=== PATIENT | male | born 1960 | race Caucasian/White ===

== ENCOUNTER 2020-06-27 07:25 | Outpatient (CLI) | payer OTHER, SELFPAY ==
[2020-06-27 07:39] LABS: Add Urine Microscopic? YES; Appearance Urine Clear (Clear); Basophils Absolute Auto 0.02 K/mm3 (0.00-0.10); Basophils Percent Auto 0.5 % (0.0-1.0); Bilirubin Urine 2+ (Negative); Blood Urine Negative (Negative); Color Urine Yellow (Yellow); Eosinophils Absolute Auto 0.26 K/mm3 (0.02-0.50); Eosinophils Percent Auto 6.2 % (1.0-6.0); Glucose Urine UA Negative (Negative); Hematocrit 42.7 % (40.0-54.0); Hemoglobin 14.2 g/dL (14.0-18.0); Immature Granulocyte Absolute 0.01 K/mm3 (0.00-0.00); Immature Granulocyte Percent A 0.2 % (0.0-0.0); Ketones Urine Negative (Negative); Leukocyte Esterase Ur Negative (Negative); Lymphocytes Absolute Auto 1.52 K/mm3 (1.10-4.50); Mean Corpuscular HGB Conc 33.3 g/dL (32.0-36.0); Mean Corpuscular Hemoglobin 30.4 pg (27.0-31.0); Mean Corpuscular Volume 91.4 fL (78.0-102.0); Mean Platelet Volume 10.4 fl (8.7-11.0); Monocytes Percent Auto 9.5 % (2.0-11.0); Neutrophils Percent Auto 47.6 % (50.0-70.0); Nitrate Urine Negative (Negative); Platelet Count Result 227 K/mm3 (150-420); Protein Urine Negative (Negative); Red Blood Count 4.67 M/mm3 (4.70-6.10); Red Cell Distribution Width 12.5 % (11.6-14.4); Specific Grav Ur 1.025 (1.010-1.020); Urobilinogen Urine 0.2 mg/dL (0.2-1.0); White Blood Count 4.2 K/mm3 (4.8-10.8)
[2020-06-27 07:48] LABS: Hemoglobin A1C 5.5 % (<5.7)
[2020-06-27 07:52] LABS: Bacteria Urine None seen /hpf; RBC Urine None seen /hpf (0-2); Squamous Epithelial Cell Urine Rare /hpf (Few); WBC Urine None seen /hpf (0-3)
[2020-06-27 08:52] LABS: Alanine Aminotransferase 37 U/L (16-63); Albumin Level 3.8 g/dL (3.4-5.0); Alkaline Phosphatase 58 U/L (46-116); Anion Gap 9 mmol/L (8-16); Aspartate Amino Transferase 25 U/L (15-37); Bilirubin,Total 0.8 mg/dL (0.00-1.00); Blood Urea Nitrogen 25 mg/dL (7-18); Calcium 8.6 mg/dL (8.5-10.1); Carbon Dioxide 26 mmol/L (21-32); Chloride 106 mmol/L (98-108); Cholesterol 160 mg/dL (0-200); Estimated Glomerular Filt Rate > 60; Glucose 99 mg/dL (70-99); HDL Direct 33 mg/dL (40-60); LDL Cholesterol Calculated 107 mg/dL (<130); Osmolality Calculated 296 mOsm/kg (285-295); Potassium 4.1 mmol/L (3.5-5.1); Prostate Specific Antigen 1.5 ng/mL (< OR = 4.0); Sodium 141 mmol/L (136-145); Total Protein 7.1 g/dL (6.4-8.2); Triglycerides 98 mg/dL (0-150)
== END 2020-06-27 07:26 | disposition home or self-care (01) ==
LOC: CHSLAB 07:26
PROVIDERS: PCP Internal Medicine; Visit Provider Internal Medicine
DX: R73.01 Impaired fasting glucose (principal); I10 Essential (primary) hypertension; E78.2 Mixed hyperlipidemia; E53.9 Vitamin B deficiency, unspecified; Z12.5 Encounter for screening for malignant neoplasm of prostate
CPT/HCPCS: 36415; 80053; 80061; 81001; 83036; 84153; 85025; G0103

== ENCOUNTER 2021-01-22 07:38 | Outpatient (CLI) | payer OTHER, SELFPAY ==
[2021-01-22 07:52] LABS: Basophils Absolute Auto 0.04 K/mm3 (0.00-0.10); Eosinophils Absolute Auto 0.23 K/mm3 (0.02-0.50); Eosinophils Percent Auto 5.5 % (1.0-6.0); Hematocrit 41.8 % (40.0-54.0); Immature Granulocyte Absolute 0.01 K/mm3 (0.00-0.00); Immature Granulocyte Percent A 0.2 % (0.0-0.0); Lymphocytes Absolute Auto 1.55 K/mm3 (1.10-4.50); Lymphocytes Percent Auto 37.1 % (18.0-42.0); Mean Corpuscular HGB Conc 33.5 g/dL (32.0-36.0); Mean Corpuscular Hemoglobin 30.3 pg (27.0-31.0); Mean Corpuscular Volume 90.5 fL (78.0-102.0); Mean Platelet Volume 9.9 fl (8.7-11.0); Monocytes Absolute Auto 0.41 K/mm3 (0.10-0.90); Monocytes Percent Auto 9.8 % (2.0-11.0); Neutrophils Absolute Auto 1.9 K/mm3 (1.7-7.2); Neutrophils Percent Auto 46.4 % (50.0-70.0); Platelet Count Result 228 K/mm3 (150-420); Red Blood Count 4.62 M/mm3 (4.70-6.10); Red Cell Distribution Width 12.8 % (11.6-14.4); White Blood Count 4.2 K/mm3 (4.8-10.8)
[2021-01-22 07:55] LABS: Add Urine Microscopic? YES; Appearance Urine Clear (Clear); Bilirubin Urine 3+ (Negative); Blood Urine Negative (Negative); Color Urine Yellow (Yellow); Glucose Urine UA Negative (Negative); Ketones Urine Negative (Negative); Leukocyte Esterase Ur Negative (Negative); Nitrate Urine Negative (Negative); Protein Urine Negative (Negative); Specific Grav Ur >= 1.030 (1.010-1.020); Urobilinogen Urine 0.2 mg/dL (0.2-1.0); pH Urine 5.5 (5.0-8.0)
[2021-01-22 07:59] LABS: Bacteria Urine Trace /hpf; RBC Urine None seen /hpf (0-2); Squamous Epithelial Cell Urine Rare /hpf (Few); WBC Urine None seen /hpf (0-3)
[2021-01-22 08:01] LABS: Hemoglobin A1C 5.3 % (<5.7)
[2021-01-22 09:05] LABS: Alanine Aminotransferase 43 U/L (16-63); Albumin Level 3.8 g/dL (3.4-5.0); Alkaline Phosphatase 52 U/L (46-116); Anion Gap 8 mmol/L (8-16); Aspartate Amino Transferase 23 U/L (15-37); Blood Urea Nitrogen 27 mg/dL (7-18); Calcium 8.9 mg/dL (8.5-10.1); Carbon Dioxide 29 mmol/L (21-32); Chloride 105 mmol/L (98-108); Cholesterol 142 mg/dL (0-200); Creatine Kinase 322 U/L (39-308); Estimated Glomerular Filt Rate > 60; Glucose 95 mg/dL (70-99); HDL Direct 34 mg/dL (40-60); LDL Cholesterol Calculated 88 mg/dL (<130); Osmolality Calculated 299 mOsm/kg (285-295); Potassium 3.8 mmol/L (3.5-5.1); Sodium 142 mmol/L (136-145); Total Protein 6.9 g/dL (6.4-8.2); Triglycerides 98 mg/dL (0-150); Vitamin B12 1878 pg/mL (193-986)
[2021-01-26 22:43] LABS: Aldolase 6.5 U/L (<=8.1)
== END 2021-01-22 07:39 | disposition home or self-care (01) ==
LOC: CHSLAB 07:41
PROVIDERS: PCP Internal Medicine; Visit Provider Internal Medicine
DX: E78.2 Mixed hyperlipidemia (principal); I10 Essential (primary) hypertension; R73.01 Impaired fasting glucose; E53.9 Vitamin B deficiency, unspecified; M79.10 Myalgia, unspecified site
CPT/HCPCS: 36415; 80053; 80061; 81001; 82085; 82550; 82607; 83036; 85025

== ENCOUNTER 2021-07-03 07:28 | Outpatient (CLI) | payer OTHER, SELFPAY ==
[2021-07-03 07:50] LABS: Add Urine Microscopic? YES; Appearance Urine Clear (Clear); Bilirubin Urine 2+ (Negative); Blood Urine Negative (Negative); Color Urine Light Yellow (Yellow); Glucose Urine UA Negative (Negative); Hematocrit 43.7 % (40.0-54.0); Hemoglobin 14.8 g/dL (14.0-18.0); Ketones Urine Negative (Negative); Leukocyte Esterase Ur Negative (Negative); Mean Corpuscular HGB Conc 33.9 g/dL (32.0-36.0); Mean Corpuscular Hemoglobin 30.6 pg (27.0-31.0); Mean Corpuscular Volume 90.3 fL (78.0-102.0); Mean Platelet Volume 10.5 fl (8.7-11.0); Nitrate Urine Negative (Negative); Platelet Count Result 213 K/mm3 (150-420); Protein Urine Negative (Negative); Red Blood Count 4.84 M/mm3 (4.70-6.10); Red Cell Distribution Width 12.8 % (11.6-14.4); Urobilinogen Urine 0.2 mg/dL (0.2-1.0); White Blood Count 3.6 K/mm3 (4.8-10.8)
[2021-07-03 07:57] LABS: Bacteria Urine None seen /hpf; RBC Urine None seen /hpf (0-2); WBC Urine None seen /hpf (0-3)
[2021-07-03 08:07] LABS: Hemoglobin A1C 5.3 % (<5.7)
[2021-07-03 08:41] LABS: Band Neutrophils Percent 0 % (0-6); Eosinophils Absolute Manual 0.03 K/mm3 (0.02-0.5); Eosinophils Percent Manual 1 % (1-6); Lymphocytes Absolute Manual 1.26 K/mm3 (1.1-4.5); Lymphocytes Percent Manual 35 % (18-44); Monocytes Absolute Manual 0.36 K/mm3 (0.1-0.90); Monocytes Percent Manual 10 % (3-9); Neutrophils Absolute Manual 1.94 K/mm3 (1.3-6.7); Neutrophils Percent Manual 54 % (46-73); Platelet Estimate Adequate (Adequate); Total Cells Counted 100
[2021-07-03 09:26] LABS: Alanine Aminotransferase 41 U/L (16-63); Alkaline Phosphatase 60 U/L (46-116); Anion Gap 8 mmol/L (8-16); Aspartate Amino Transferase 23 U/L (15-37); Blood Urea Nitrogen 26 mg/dL (7-18); Carbon Dioxide 29 mmol/L (21-32); Chloride 105 mmol/L (98-108); Cholesterol 153 mg/dL (0-200); Creatine Kinase 210 U/L (39-308); Estimated Glomerular Filt Rate > 60; Free T4 Free Thyroxine 0.73 ng/dL (0.76-1.46); Glucose 97 mg/dL (70-99); HDL Direct 37 mg/dL (40-60); LDL Cholesterol Calculated 98 mg/dL (<130); Osmolality Calculated 298 mOsm/kg (285-295); Potassium 4.3 mmol/L (3.5-5.1); Prostate Specific Antigen 1.5 ng/mL (< OR = 4.0); Sodium 142 mmol/L (136-145); Total Protein 7.2 g/dL (6.4-8.2); Triglycerides 90 mg/dL (0-150); Vitamin B12 1242 pg/mL (193-986)
== END 2021-07-03 07:29 | disposition home or self-care (01) ==
LOC: CHSLAB 07:30
PROVIDERS: PCP Internal Medicine; Visit Provider Internal Medicine
DX: E53.9 Vitamin B deficiency, unspecified (principal); D70.9 Neutropenia, unspecified; R73.01 Impaired fasting glucose; I10 Essential (primary) hypertension; M79.10 Myalgia, unspecified site; Z12.5 Encounter for screening for malignant neoplasm of prostate
CPT/HCPCS: 36415; 80053; 80061; 81001; 82550; 82607; 83036; 84153; 84439; 84443; 85025; 85060; G0103

== ENCOUNTER 2022-01-08 07:26 | Outpatient (CLI) | payer BC, SELFPAY ==
[2022-01-08 07:47] LABS: Basophils Absolute Auto 0.03 K/mm3 (0.00-0.10); Basophils Percent Auto 0.7 % (0.0-1.0); Eosinophils Absolute Auto 0.29 K/mm3 (0.02-0.50); Hematocrit 45.5 % (40.0-54.0); Hemoglobin 15.3 g/dL (14.0-18.0); Immature Granulocyte Absolute 0.01 K/mm3 (0.00-0.00); Immature Granulocyte Percent A 0.2 % (0.0-0.0); Lymphocytes Absolute Auto 1.42 K/mm3 (1.10-4.50); Lymphocytes Percent Auto 34.5 % (18.0-42.0); Mean Corpuscular HGB Conc 33.6 g/dL (32.0-36.0); Mean Corpuscular Hemoglobin 31.2 pg (27.0-31.0); Mean Corpuscular Volume 92.9 fL (78.0-102.0); Mean Platelet Volume 10.5 fl (8.7-11.0); Monocytes Absolute Auto 0.36 K/mm3 (0.10-0.90); Monocytes Percent Auto 8.7 % (2.0-11.0); Neutrophils Percent Auto 48.9 % (50.0-70.0); Platelet Count Result 230 K/mm3 (150-420); Red Cell Distribution Width 12.6 % (11.6-14.4); White Blood Count 4.1 K/mm3 (4.8-10.8)
[2022-01-08 07:49] LABS: Add Urine Microscopic? YES; Appearance Urine Clear (Clear); Bilirubin Urine 2+ (Negative); Blood Urine Negative (Negative); Color Urine Yellow (Yellow); Glucose Urine UA Negative (Negative); Ketones Urine Negative (Negative); Leukocyte Esterase Ur Negative (Negative); Nitrate Urine Negative (Negative); Protein Urine Negative (Negative); Specific Grav Ur >= 1.030 (1.010-1.020); Urobilinogen Urine 0.2 mg/dL (0.2-1.0)
[2022-01-08 07:53] LABS: RBC Urine None seen /hpf (0-2); Squamous Epithelial Cell Urine Rare /hpf (Few); WBC Urine None seen /hpf (0-3)
[2022-01-08 07:54] LABS: Bacteria Urine Trace /hpf; Mucus Urine Few /lpf
[2022-01-08 08:54] LABS: Alanine Aminotransferase 36 U/L (16-63); Albumin Level 3.9 g/dL (3.4-5.0); Alkaline Phosphatase 61 U/L (46-116); Anion Gap 8 mmol/L (8-16); Aspartate Amino Transferase 21 U/L (15-37); Bilirubin,Total 0.7 mg/dL (0.00-1.00); Blood Urea Nitrogen 22 mg/dL (7-18); Calcium 8.7 mg/dL (8.5-10.1); Carbon Dioxide 29 mmol/L (21-32); Chloride 104 mmol/L (98-108); Cholesterol 159 mg/dL (0-200); Estimated Glomerular Filt Rate > 60; Free T4 Free Thyroxine 0.75 ng/dL (0.76-1.46); Glucose 100 mg/dL (70-99); HDL Direct 33 mg/dL (40-60); LDL Cholesterol Calculated 108 mg/dL (<130); Osmolality Calculated 295 mOsm/kg (285-295); Potassium 4.3 mmol/L (3.5-5.1); Sodium 141 mmol/L (136-145); Thyroid Stimulating Hormone 2.25 uIU/mL (0.36-3.74); Total Protein 7.1 g/dL (6.4-8.2); Triglycerides 91 mg/dL (0-150); Vitamin B12 657 pg/mL (193-986)
[2022-01-08 08:56] LABS: Erythrocyte Sedimentation Rate 2 mm/hr (0-20)
[2022-01-08 08:57] LABS: CRP < 0.5 mg/dL (0.0-0.9)
== END 2022-01-08 07:27 | disposition home or self-care (01) ==
LOC: CHSLAB 07:30
PROVIDERS: PCP Internal Medicine; Visit Provider Internal Medicine
DX: D70.9 Neutropenia, unspecified (principal); I10 Essential (primary) hypertension; E55.9 Vitamin D deficiency, unspecified; R73.01 Impaired fasting glucose; E03.4 Atrophy of thyroid (acquired); M45.0 Ankylosing spondylitis of multiple sites in spine
CPT/HCPCS: 36415; 80053; 80061; 81001; 82607; 83036; 84439; 84443; 85025; 85652; 86140

== ENCOUNTER 2022-01-25 17:03 | Outpatient (CLI) | payer BC, SELFPAY ==
--- NOTE | ~2022-01-25 | XR_ITS ---
XR_CERV2-3V_CR DATE: 01/25/2022 17:38 INDICATION: Neck pain TECHNIQUE: AP, open-mouth, lateral views COMPARISON: December 14, 2013 CT cervical spine FINDINGS: C1 and C2 are normally aligned and the odontoid process is intact. There is mild levoscoliosis of the cervical and upper thoracic spine. No fracture or dislocation, locked facet or prevertebral soft tissue swelling. There is severe degenerative disc disease at C5-6 and C6-7, as well as uncovertebral joint spurring. IMPRESSION: Severe degenerative disc disease and uncovertebral joint spurring at C5-6 and C6-7 Reviewed, dictated and finalized at [facility]. Reviewed, dictated and finalized at location A. IMPRESSION: Severe degenerative disc disease and uncovertebral joint spurring a t C5-6 and C6-7
--- NOTE | ~2022-01-25 | XR_ITS ---
XR thoracic spine 3V DATE: 01/25/2022 17:38 INDICATION: Chronic upper back pain with limited movement TECHNIQUE: AP, lateral, swimmer views COMPARISON: None FINDINGS: Severe degenerative disc disease at C5-6 and C6-7. There is minimal dextro scoliosis of the thoracic spine. There is thoracic spine degenerative spurring, greater in the lower thoracic spine. No fracture or dislocation or bone destruction is evident. The thoracic pedicles are intact. No yeni solange soft tissue thickening. IMPRESSION: Minimal dextro scoliosis Degenerative spurring Reviewed, dictated and finalized at location A.
--- NOTE | ~2022-01-25 | XR_ITS ---
XR lumbar spine 2-3V DATE: 01/25/2022 17:38 INDICATION: Chronic low back pain, worse on the right. No known injury. TECHNIQUE: AP, lateral, coned lateral lumbosacral views COMPARISON: None FINDINGS: Normal alignment of the lumbar spine. No fracture or bone destruction. The lumbar pedicles are intact. Moderate to moderately severe degenerative disc disease of the lumbar and lumbosacral spine except fo r mild degenerative disease at L4-5. The sacroiliac joints are intact. IMPRESSION: Multilevel degenerative disc disease Reviewed, dictated and finalized at location A.
--- NOTE | ~2022-01-25 | XR_ITS ---
XR hip BI wo pelvis DATE: 01/25/2022 17:38 INDICATION: Chronic bilateral hip pain, worsening on the right. No known injury. TECHNIQUE: AP and lateral views of each hip COMPARISON: None FINDINGS: There is bilateral hip osteoarthritic arthritis, moderately severe on the right, moderately prominent on the left. No fracture, dislocation, avascular necrosis or bone destruction is detected. Normal alignment at the pubic symphysis and sacroiliac joints. Status post right inguinal herniorrhaphy. IMPRESSION: Bilateral hip osteoarthritis, moderately severe on the right, moderate on the left Status post right inguinal herniorrhaphy Reviewed, dictated and finalized at location A. IMPRESSION: Bilateral hip osteoarthritis, moderately severe on the right, moder ate on the left Status post right inguinal herniorrhaphy
== END 2022-01-25 17:04 | disposition home or self-care (01) ==
LOC: CHSIMG 17:05
PROVIDERS: PCP Internal Medicine; Visit Provider Internal Medicine
DX: M25.551 Pain in right hip (principal); M54.50 Low back pain, unspecified; M45.9 Ankylosing spondylitis of unspecified sites in spine
CPT/HCPCS: 72040; 72072; 72100; 73521

== ENCOUNTER 2022-02-08 16:48 | Outpatient (RCR) | payer BC, SELFPAY ==
--- NOTE | 2022-02-08 17:50 | PTOPEVAL ---
Thank you for referring Oracio Bloom to [facility].? The patient is scheduled to be seen for therapy? ____x/week for ___ weeks. Please review, sign, date and return this plan of care JERROD. I agree with and certify that the following plan of care is medically necessary. Referring Physician Date Admitting Provider: Attending Provider: Aditi Ellison MD Referring Provider: *PT Outpatient Evaluation Start: 02/08/22 17:06 Freq: Status: Active Protocol: Document 02/08/22 17:15 [facility] (Rec: 02/08/22 17:50 [facility] [email or web address]) Therapy Assessment Status Assessment Status Assessment Status Evaluation Evaluation Information Problem Diagnosis R hip pain, bilateral hip pain , DJD back and hips Onset 11/30/21 Additional Evaluation Detail LEFS = 52% functionally declined Subjective Information patient reports he has Query Text:As Reported By Patient/ stiffnes sin the mornings. he Family reports he has difficulty puting his R sock on. he reports he has limited mobility in the R hip. he reports the more he is up walking and standing both hips will burn. he reports since seeing a chiropractor his hip pain has been worse in the R hip. he reports he has more pain with rolling the R hip out to the side. Prior Level of Function Comments Additional Prior Level of Function patient reports he has been Comments more flared up for the past 3 months or so. prior to that, no lasting issues. he reports he would have come and go pain in the R hip and lower back. Pain Assessment Timing of Pain Assessment Timing of Pain Assessment Assessment Pain Scale Pain Scale Used Numeric (1 - 10) Self Report Pain Assessment Right Hip(s) Reported Pain Level 0 Greatest Pain Intensity 9 Pain Score Pain Score 0: Self Report Interventions Used Interventions Used By Clinicians Exercise,Rest Pain Relief Interventions Used By Medication Patient Cervical and Lumbar ROM Lumbar ROM Lumbar Flexion Active Floor Query Text:Hands to: Lumbar Extension (0-40) 20 Query Text:Active in Degrees Lumbar Lateral Flexion Right (0-40) 30 Query Text:Active in Degrees Lumbar Lateral Flexion Left (0-40)
--- NOTE | 2022-03-11 12:54 | PTOPEVAL ---
Thank you for referring Oracio Bloom to [facility].? The patient is scheduled to be seen for therapy? ____x/week for ___ weeks. Please review, sign, date and return this plan of care JERROD. I agree with and certify that the following plan of care is medically necessary. Referring Physician Date Admitting Provider: Attending Provider: Aditi Ellison MD Referring Provider: *PT Outpatient Evaluation Start: 02/08/22 17:06 Freq: Status: Active Protocol: Document 03/09/22 17:00 [facility] (Rec: 03/11/22 12:54 [facility] [id number]) Therapy Assessment Status Assessment Status Assessment Status Discharge Evaluation Information Problem Diagnosis R hip pain, bilateral hip pain , DJD back and hips Onset 11/30/21 Subjective Information patient reports he feels much Query Text:As Reported By Patient/ better overall. he reports Family he has pain still in the R hip . however, he reports improved mobility and activity tolerance since beginning therapy. he reports he is compliant with his HEP at home . Pain Assessment Timing of Pain Assessment Timing of Pain Assessment Pre-Treatment Pain Scale Pain Scale Used Numeric (1 - 10) Self Report Pain Assessment Right Hip(s) Reported Pain Level 2 Greatest Pain Intensity 4 Pain Score Pain Score 2: Self Report Interventions Used Interventions Used By Clinicians Activity or ADL's,Education, Electrical Stimulation, Exercise,Heat,Rest Lower Extremity Range of Motion General Lower Extremity Range of Motion Gross Lower Extremity Range of Motion 35 degrees R hip ER Comments 20 degrees R hip IR 110 degrees R hip flex Lower Extremity Muscle Strength Testing General Lower Extremity Strength Gross Lower Extremity Strength R hip flex 3+/5 R hip abd 3+/5 R knee ext 5/5 R knee flex 5/5 Muscle Length Testing Muscle Length Testing Left Hamstring Length 20 Query Text:(90 - 90 Position) Right Hamstring Length 20 Query Text:(90 - 90 Position) Gait Assessment Gait Pattern Assessment Other Gait Observations mild trendelemburg lean to the R with R stance phase of gait . General Exercise General Exercises Exercise Description Ther ex Query Text:Record Sets, Reps, -arom R hip mobility ER and Resistance, and Position flex wit
== END 2022-03-09 13:42 | disposition home or self-care (01) ==
LOC: CHSPT 16:48
PROVIDERS: PCP Internal Medicine; Visit Provider Internal Medicine
DX: M25.552 Pain in left hip (principal); M25.551 Pain in right hip; M47.9 Spondylosis, unspecified
CPT/HCPCS: 97014; 97110; 97161; G0283

== ENCOUNTER 2022-03-10 16:58 | Outpatient (CLI) | payer BC, SELFPAY ==
[2022-03-10 17:13] LABS: Basophils Absolute Auto 0.03 K/mm3 (0.00-0.10); Basophils Percent Auto 0.6 % (0.0-1.0); Eosinophils Absolute Auto 0.24 K/mm3 (0.02-0.50); Eosinophils Percent Auto 4.6 % (1.0-6.0); Hematocrit 43.2 % (40.0-54.0); Hemoglobin 14.6 g/dL (14.0-18.0); Immature Granulocyte Absolute 0.02 K/mm3 (0.00-0.00); Immature Granulocyte Percent A 0.4 % (0.0-0.0); Lymphocytes Absolute Auto 1.74 K/mm3 (1.10-4.50); Lymphocytes Percent Auto 33.5 % (18.0-42.0); Mean Corpuscular HGB Conc 33.8 g/dL (32.0-36.0); Mean Corpuscular Volume 91.7 fL (78.0-102.0); Mean Platelet Volume 10.2 fl (8.7-11.0); Monocytes Percent Auto 9.6 % (2.0-11.0); Neutrophils Absolute Auto 2.7 K/mm3 (1.7-7.2); Neutrophils Percent Auto 51.3 % (50.0-70.0); Platelet Count Result 266 K/mm3 (150-420); Red Blood Count 4.71 M/mm3 (4.70-6.10); Red Cell Distribution Width 12.3 % (11.6-14.4); White Blood Count 5.2 K/mm3 (4.8-10.8)
[2022-03-10 17:25] LABS: Alanine Aminotransferase 27 U/L (16-63); Aspartate Amino Transferase 23 U/L (15-37)
== END 2022-03-10 16:59 | disposition home or self-care (01) ==
LOC: CHSLAB 17:02
PROVIDERS: PCP Internal Medicine; Visit Provider Internal Medicine
DX: B35.1 Tinea unguium (principal)
CPT/HCPCS: 36415; 84450; 84460; 85025

== ENCOUNTER 2022-05-11 07:45 | Outpatient (CLI) | payer BC, SELFPAY ==
--- NOTE | ~2022-05-11 | XR_ITS ---
EXAMINATION: XR lg joint inject/asp w image DATE: 05/11/2022 08:20 INDICATION: Right hip pain. TECHNIQUE: A time-out was performed to verify the patient's name, date of , and procedure to b e performed. The procedure including the risks, benefits, and alternatives was discussed with the pat ient. Risks discussed included bleeding and infection. The patient understood the risks and agreed to proceed. The skin overlying the right hip joint was prepped and draped in usual sterile fashion. A nesthetic was administered with 1% lidocaine subcutaneously. A 22 G needle was advanced under fluoro scopic guidance into the joint. Subsequently, injectate consisting of 5 mL 1% lidocaine, 1 mL 40 mg/ mL Kenalog, and 1 mL 4 mg/mL dexamethasone was instilled. The needle was removed and the entry site was cleaned and dressed. There were no immediate complications. Fluoroscopy exposure time was 0.0 mi nutes. The total number of images was 1. FINDINGS: Real-time fluoroscopy demonstrates the needle in the right hip joint. Patient's pain prior to procedure:4/10. Patient's pain following the procedure: 4/10. IMPRESSION: 1. Fluoroscopy guided right hip joint injection of local anesthetic and steroid. Reviewed, dictated and finalized at location A. IMPRESSION: 1. Fluoroscopy guided right hip joint injection of local anesthetic and steroid .
== END 2022-05-11 07:46 | disposition home or self-care (01) ==
LOC: ANHIMG 07:50
PROVIDERS: PCP Internal Medicine; Visit Provider Internal Medicine
DX: M54.50 Low back pain, unspecified (principal); M25.552 Pain in left hip
CPT/HCPCS: 20610; 77002; J1100; J3301

== ENCOUNTER 2022-12-19 10:57 | Outpatient (CLI) | payer BC, SELFPAY ==
--- NOTE | ~2022-12-19 | XR_ITS ---
Left ankle Technique: AP, oblique, and lateral views were obtained. Clinical History: Pain Findings: No acute fracture or dislocation is seen. Chronic fracture fragment versus persistent secon jaycob ossification center noted at the tip of the lateral malleolus. Osseous alignment is anatomic. An kle mortise and other visualized joint spaces are preserved. Soft tissues are otherwise unremarkable . Impression: No acute abnormality. Reviewed, dictated and finalized at location . TRUCTION OR LEAK GANG LABORER Impression: No acute abnormality.
--- NOTE | ~2022-12-19 | XR_ITS ---
Left foot Technique: AP, oblique, and lateral views were obtained. Clinical History: Pain Findings: No acute fracture or dislocation is seen. Osseous alignment is anatomic. Joint spaces are p reserved without erosive or degenerative change. Soft tissues are unremarkable. Impression: Unremarkable left foot radiographs. Reviewed, dictated and finalized at location . TENTER OPERATOR Impression: Unremarkable left foot radiographs.
== END 2022-12-19 10:58 | disposition home or self-care (01) ==
LOC: CHSIMG 11:01
PROVIDERS: PCP Internal Medicine; Visit Provider Internal Medicine
DX: S99.922A Unspecified injury of left foot, initial encounter (principal)
CPT/HCPCS: 73610; 73630

== ENCOUNTER 2023-01-31 11:15 | Outpatient (CLI) | payer BC, SELFPAY ==
--- NOTE | 2023-01-31 15:11 | ECG_ITS ---
Measurements Intervals [place] Rate: 62 P: -7 VT: 189 QRS: -3 QRSD: 103 T: 18 QT: 376 QTc: 384 Interpretive Statements SINUS RHYTHM LEFT VENTRICULAR HYPERTROPHY AND ST-T CHANGE [VOLTAGE CRITERIA PLUS ST/T ABNORMALITY] ABNORMAL ECG NO PREVIOUS ECG AVAILABLE FOR COMPARISON Electronically Signed On 02-01-2023 13:40:06 CDT by Mateus Daniel M.D.
[2023-01-31 15:58] LABS: Basophils Percent Auto 0.7 % (0.2-1.2); Eosinophils Absolute Auto 0.1 K/mm3 (0-0.3); Eosinophils Percent Auto 2.9 % (0-4.4); Hematocrit 43.6 % (42.0-52.0); Hemoglobin 14.8 g/dL (14.0-18.0); Immature Granulocyte Absolute 0.01 K/mm3 (0.00-0.031); Immature Granulocyte Percent A 0.2 % (0-0.5); Lymphocytes Absolute Auto 1.42 K/mm3 (0.9-3.2); Lymphocytes Percent Auto 31.6 % (18.3-44.2); Mean Corpuscular HGB Conc 33.9 g/dl (32-36); Mean Corpuscular Hemoglobin 30.6 pg (26-34); Mean Corpuscular Volume 90.3 fl (80-100); Mean Platelet Volume 10.5 fl (7.4-10.4); Monocytes Absolute Auto 0.4 K/mm3 (0.1-0.6); Monocytes Percent Auto 8.5 % (2.6-8.5); Neutrophils Absolute Auto 2.5 K/mm3 (1.3-6.7); Neutrophils Percent Auto 56.1 % (45.5-73.1); Platelet Count Result 231 k/mm3 (150-375); Red Blood Count 4.83 M/mm3 (4.6-6.20); Red Cell Distribution Width 12.9 % (11.5-14.5); White Blood Count 4.5 K/mm3 (4.5-10.0)
[2023-01-31 16:22] LABS: Albumin Level 4.8 g/dL (3.5-5.1)
[2023-01-31 16:47] LABS: Urine Cotinine NEGATIVE
[2023-01-31 18:07] LABS: Hemoglobin A1C 5.1 % (<5.7)
== END 2023-01-31 11:16 | disposition home or self-care (01) ==
PROVIDERS: PCP Internal Medicine; Visit Provider Orthopaedic Surgery
DX: Z01.818 Encounter for other preprocedural examination (principal); M16.11 Unilateral primary osteoarthritis, right hip; R94.31 Abnormal electrocardiogram [ECG] [EKG]
CPT/HCPCS: 80307; 82040; 83036; 85025; 86850; 86900; 86901; 87081; 87147; 87181; 87186; 93005

== ENCOUNTER 2023-01-31 13:50 | Outpatient (CLI) | payer BC, SELFPAY ==
[2023-01-31 16:20] LABS: Cholesterol 196 mg/dL (0-200); HDL Direct 30 mg/dL; Triglycerides 137 mg/dL (<150)
[2023-01-31 16:23] LABS: Alanine Aminotransferase 32 U/L (6-50); Albumin Level 4.7 g/dL (3.5-5.1); Alkaline Phosphatase 62 U/L (38-126); Anion Gap 9 mmol/L (8-16); Aspartate Amino Transferase 25 U/L (17-59); Bilirubin,Total 1.3 mg/dL (0.2-1.3); Blood Urea Nitrogen 18 mg/dL (9-20); Calcium 9.5 mg/dL (8.4-10.2); Carbon Dioxide 27 mmol/L (22-30); Chloride 103 mmol/L (98-107); Estimated Glomerular Filt Rate > 60; Glucose 90 mg/dL (65-110); Potassium 4.2 mmol/L (3.4-5.0); Sodium 139 mmol/L (137-145)
[2023-01-31 16:28] LABS: CRP < 0.5 mg/dL (<1.0)
[2023-01-31 16:32] LABS: LDL Cholesterol Direct 129 mg/dL
[2023-01-31 16:53] LABS: Erythrocyte Sedimentation Rate 5 mm/hr (0-20)
== END 2023-01-31 13:51 | disposition home or self-care (01) ==
LOC: ANHLAB 13:55
PROVIDERS: PCP Internal Medicine; Visit Provider Internal Medicine
DX: R73.01 Impaired fasting glucose (principal); M45.0 Ankylosing spondylitis of multiple sites in spine; E78.2 Mixed hyperlipidemia; E53.9 Vitamin B deficiency, unspecified; D70.9 Neutropenia, unspecified
CPT/HCPCS: 36415; 80053; 80061; 82607; 85652; 86140

== ENCOUNTER 2023-02-08 01:26 | Day surgery (SDC) | payer BC, SELFPAY ==
[2023-01-31 14:09] VITALS: BP 121/76; PULSE 67; RESP 16; TEMP 37.1; O2SAT 97
[2023-01-31 14:10] VITALS: BMI 38.5
--- NOTE | 2023-01-31 14:35 | PC.NURSE ---
Report to the Outpatient Waiting Room, entrance under the green pavilion located off [facility], at time __10:00AM on date ___02/08/23____. Planned Procedure Time: __12:00PM . Time changes happen often and if your time is changed the preop area will call you the afternoon before. - You and your visitor will be asked to self-screen and do not enter if you have any COVID symptoms. - Only one visitor is requested with a max of two and NO children visitors are allowed at this time. - The patient visitor may be requested to leave or wait in car when not with patient due to distancing restrictions. - A mask is optional within the hospital at this time. Patients may have clear liquids (water, carbonated beverages, clear teas, apple juice) until 3 hours prior to surgery with a maximum of 20 ounces. - No food from midnight until time of surgery Take the following medications with a SIP of water the morning of surgery: __HYDROCODONE NEEDED DO NOT STOP ANY OF YOUR OTHER PRESCRIPTION MEDICATIONS PRIOR TO SURGERY ?EXCEPT THE FOLLOWING Medications to discontinue per physician ___HOLD VITAMINS/SUPPLEMENTS FOR 3 DAYS PRE-OP- LAST DOSE 02/04/23, HOLD DICLOFENAC/NSAIDS-7 DAYS PRE-OP- LAST DOSE 02/01/23____ Please no make-up, nail costa rican, hairspray, perfume, deodorant, or body powder the day of surgery. No jewelry (including any body piercings) or valuables the day of surgery, leave them at home. Please take a shower or bath the night before, or the morning of, surgery with an antibacterial soap. Wear comfortable, loose fitting clothing. Children are encouraged to wear pajamas. - Jewelry must be removed prior to entering the operating room. Rings and piercings that are not removed may be cut off. - The hospital will not accept responsibility for valuables. - Please leave all valuables, including medications, at home the day of surgery. If you are going home after surgery, a licensed bottom hoop driver must drive you home. - NO public transportation without another adult if you receive anesthesia. - We recommend that an adult stay with you for 24 hours following discharge. - We also recommend that you do not drive, make important decision, drink alcoholic beverages, or take any drugs that were not prescribed by your health care provider for at least 24 hours after your discharge time. Follow any additional instructions given to you from your surgeon. If you or anyone in your household have experienced Covid symptoms in the past week, please notify your surgeon or the nurse liaison at the phone number below for possible testing. Telephone instructions given to __PATIENT and asked if any additional questions and then verbalized understanding. Patient advised to call surgeon office or pre surgery nurse liaison [phone] if any additional questions.
--- NOTE | 2023-02-06 11:43 | PM.IMHP ---
H&P: HPI History of Present Illness Date/Time: 02/06/23 11:43 Chief Complaint: right hip DJD Narrative: 62-year-old male patient of Dr. Ellison, who presents today for an anterior right total hip arthroplasty. Patient been having pain in his right hip for about a year. Most the pain is in the anterior lateral aspect of it. He has been treating this with either ebpi-mic-ixxkord anti-inflammatories at this point he is on prescription strength anti-inflammatories. Her of which have helped with his symptoms. He has pain on a daily basis. He is finding it difficult to sleep at night. It is affecting his normal daily activities. Patient does have severe osteoarthritis in the right hip. He feels at this point is ready to proceed with total hip arthroplasty rather continue nonsurgical treatment Review of Systems Review of Systems: All systems reviewed & are unremarkable except as noted in HPI and below PMFSH Past Medical History Medical History (Updated 02/08/23 @ 08:22 by Mickey Carney, ) Arthritis Arthritis of ankle Arthritis of foot, degenerative Asthma Cancer of unknown origin Closed avulsion fracture of distal end of left fibula Headache History of meniscal tear surgical repair/bilateral Hypertension Obstructive sleep apnea Surgical History Surgical History H/O hernia repair H/O rotator cuff surgery 2017/RT shoulder Family History Family History Father Family history of liver disease Mother Family history of coronary artery disease Other Diabetes mellitus Hypertension Social History Social History Smoking status: Never smoker Alcohol intake: current Drinks per week: 3 Alcohol use details: 1-5 drinks per week Substance use: never Living arrangements: alone Additional living arrangements comments: Gender identity (if verbalized by the patient): Male Spiritual care concerns: No Meds Home Medications and Allergies Home Medications Medication Instructions Recorded Confirmed Type cetirizine 10 mg tablet (Zyrtec) 10 mg PO DAILY 06/24/20 01/31/23 History cyanocobalamin (vitamin B-12) 2,500 mcg sublingual DAILY 06/24/20 01/31/23 History 2,500 mcg sublingual tablet gabapentin 300 mg capsule 600 mg PO HS 06/24/20 01/31/23 History losartan 50 mg tablet 50 mg PO QAM 06/24/20 01/31/23 History multivitamin (Multiple Vitamins 1 tablet PO DAILY 06/24/20 01/31/23 History tablet) acetaminophen 650 mg 650 mg PO HS 01/31/23 01/31/23 History tablet,extended release diclofenac sodium 75 mg 75 mg PO BID 01/31/23 01/31/23 History tablet,delayed release hydrocodone 10 mg-acetaminophen 1 tablet PO BID PRN Pain 01/31/23 01/31/23 History 325 mg tablet Allergies Allergy/AdvReac Type Severity Reaction Status Date / Time ciprofloxacin [From Cipro] Allergy Severe THROAT Verified 02/08/23 12:19 SWELLING Exam Narrative: 62-year-old male he is 5 ft 10 276 lb. His BMI is 39.6. His right hip flexes to 100 which causes him moderately severe anterior lateral hip pain. Internal rotation to 0 and external rotation of 30 both with minimal discomfort. Stinchfield maneuver causes him mild anterior lateral hip pain. He has normal strength with abductor testing in lateral position. No edema in either lower extremity. 2+ posterior artery pulse absent dorsalis pedis pulse. No edema in either lower extremity. Normal sensation to the right lower extremity. Resp: Auscultation: clear to auscultation bilaterally Cardio: Rate: regular rate Rhythm: regular rhythm Assessment and Plan Assessment and plan (1) Hip arthritis: Code(s): M16.10 - Unilateral primary osteoarthritis, unspecified hip Status: Acute Plan 62-year-old male who has severe osteoarthritis the right hip with significant symp
[2023-02-08] VITALS (10 sets, daily range): BP systolic 121–164; BP diastolic 57–87; PULSE 64–86; RESP 12–20; TEMP 35.7–36.7; O2SAT 92–100
--- NOTE | ~2023-02-08 | XR_ITS ---
Right Hip Technique: Portable AP view Clinical History: Status post hip arthroplasty Findings: Patient is status post right hip arthroplasty. Orthopedic hardware alignment appears anatom ic. No hardware complication is evident. Subcutaneous emphysema and swelling is likely postoperative in nature. No acute osseous fracture is seen. Mild degenerative change of the left hip joint noted. Impression: Status post total right hip arthroplasty, without evidence of hardware complication. Reviewed, dictated and finalized at location . Impression: Status post total right hip arthroplasty, without evidence of hardware complica tion.
--- NOTE | ~2023-02-08 | XR_ITS ---
EXAMINATION: XR surgery orthopedic DATE: 02/08/2023 15:00 CDT INDICATION: RIGHT ANTERIOR TOTAL HIP . TECHNIQUE: 3 fluoroscopic images of the right hip were obtained during right hip arthroplasty perform ed by the surgeon. I was not present in the operating room. Fluoroscopy exposure time was 73 seconds. Air Kerma 27.81 mGy. DAP 0.33200 mGym2. COMPARISON: 01/25/2022 FINDINGS: Several images demonstrate a right total hip arthroplasty, without unexpected radiopaque foreign body . IMPRESSION: Fluoroscopic documentation of right hip arthroplasty. Please refer to the operative note for complete procedural details . Reviewed, dictated and finalized at location K. IMPRESSION: Fluoroscopic documentation of right hip arthroplasty. Please refer to the opera tive note for complete procedural details .
--- NOTE | 2023-02-08 08:21 | WPDANESEPPF ---
Anes - Initial Pre Proc Eval Procedure: Operation Date: 02/08/23 12:00 Proposed Procedures p Right Total Hip Arthroplasty, Anterior Approach - Terrell Dallas MD Date/Time: 02/08/23 08:21 Surgeon: Terrell Dallas MD Pre Op Diagnosis: O A Rt Hip Patient Data Age: 62 Gender: M Height: 1.79 m Weight: 123.6 kg Last Vital Signs Temp 37.1 C 01/31/23 14:09 Pulse 67 01/31/23 14:09 Resp 16 01/31/23 14:09 BP 121/76 01/31/23 14:09 Pulse Ox 97 01/31/23 14:09 O2 Del Method Room Air 01/31/23 14:09 Allergies Allergy/AdvReac Type Severity Reaction Status Date / Time ciprofloxacin [From Cipro] Allergy Severe THROAT Verified 02/07/23 08:21 SWELLING Home Medications Medication Instructions Recorded Confirmed Type cetirizine 10 mg tablet (Zyrtec) 10 mg PO DAILY 06/24/20 01/31/23 History cyanocobalamin (vitamin B-12) 2,500 mcg sublingual DAILY 06/24/20 01/31/23 History 2,500 mcg sublingual tablet gabapentin 300 mg capsule 600 mg PO HS 06/24/20 01/31/23 History losartan 50 mg tablet 50 mg PO QAM 06/24/20 01/31/23 History multivitamin (Multiple Vitamins 1 tablet PO DAILY 06/24/20 01/31/23 History tablet) acetaminophen 650 mg 650 mg PO HS 01/31/23 01/31/23 History tablet,extended release diclofenac sodium 75 mg 75 mg PO BID 01/31/23 01/31/23 History tablet,delayed release hydrocodone 10 mg-acetaminophen 1 tablet PO BID PRN Pain 01/31/23 01/31/23 History 325 mg tablet Patient hx anesthesia problems: none Family hx anesthesia problems: none Results Review: All pre-operative results and documents have been reviewed as part of the pre-operative evaluation. [facility] Past Medical History Medical History (Updated 02/08/23 @ 08:22 by Mickey Carney DO) Arthritis Arthritis of ankle Arthritis of foot, degenerative Asthma Cancer of unknown origin Closed avulsion fracture of distal end of left fibula Headache History of meniscal tear surgical repair/bilateral Hypertension Obstructive sleep apnea Surgical History Surgical History H/O hernia repair H/O rotator cuff surgery 2017/RT shoulder Family History Family History Father Family history of liver disease Mother Family history of coronary artery disease Other Diabetes mellitus Hypertension Social History Social History Smoking status: Never smoker Alcohol intake: current Drinks per week: 3 Alcohol use details: 1-5 drinks per week Substance use: never Living arrangements: alone Additional living arrangements comments: Gender identity (if verbalized by the patient): Male Spiritual care concerns: No Anes - Eval Final PreProcedure Day of Procedure 02/08/23 08:21 Patient weight: obese Heart: regular rate and rhythm Lungs: clear to auscultation Airway: Mallampati scale class II Neurological: alert and oriented Last oral intake: >/= 8 hours ASA classification: III Emergent: no Anesthetic plan: proceed Anesthesia type and monitoring: general ETT and standard monitoring Results Review: All pre-operative results and documents have been reviewed as part of the pre-operative evaluation. Informed Consent: The patient's anesthetic plan and its attendant risks and benefits were discussed with the patient/family/POA. Questions were solicited and answers provided to the satisfaction of the patient/family/POA.
[2023-02-08] MEDS: ACETAMINOPHEN 500 MG TABLET 1000 MG PO ×2 (11:00→20:13)
[2023-02-08] MEDS: TRANEXAMIC ACID 1,000MG/ISO100 1,000 MG/100 ML BAG 200 MG IVPB (11:00)
[2023-02-08] MEDS: LACTATED RINGERS 1,000 ML 30 ML IV CONT ×2 (11:00→17:16)
--- NOTE | 2023-02-08 12:52 | SUR.PREOP ---
Red face and itching. Slowed Vancomycin to 125ml/hr.
--- NOTE | 2023-02-08 13:10 | WPDHPUPDATE1 ---
History and Physical Update Update Date/Time: 02/08/23 13:10 History and Physical has been reviewed, including an updated exam of the patient. There are NO changes in the patient's condition. Risks, benefits, and alternatives have been discussed and questions answered. Patient agrees to proceed with procedure.
[2023-02-08] MEDS: ceFAZolin 3 GM/D5W 100 ML 100 ML IVPB (13:31)
[2023-02-08] MEDS: ceFAZolin SODIUM 1 GM VIAL 3 GM (14:33)
[2023-02-08] MEDS: TRANEXAMIC ACID 1,000 MG/10 ML AMPUL 1000 MG IV PUSH (16:48)
[2023-02-08] MEDS: KETOROLAC 15 MG/ML VIAL (*BKC) IV PUSH ×2 (16:48→22:01)
[2023-02-08] MEDS: ceFAZolin SODIUM 1 GM VIAL 2 GM IV PUSH (16:48)
--- NOTE | 2023-02-08 17:00 | W.PM.PROC2 ---
Procedure Note - Detailed Date of Procedure 02/08/23 Pre-op Diagnosis O A Rt Hip,obesity Post-op Diagnosis Same Procedure Performed Right total hip replacement direct anterior approach Surgeon Terrell Dallas MD [employer] [place] Anesthesia General Description of Procedure Patient was brought to the operating room and general anesthesia was administered. He received 3 g of Ancef weight based vancomycin 1 g tranexamic acid preoperatively. The feet were padded and boots applied he was transferred to the [facility] [place] table in the right hip prepped draped usual fashion. There is extra difficulty with the procedure due to his BMI of 38 which added approximately 1 hour to the procedure. A 10 cm longitudinal incision was made starting 3 cm lateral to the ASIS extending distally and slightly laterally. Dissection was carried down to the fascia over the tensor fascia zee. A significant branch of lateral femoral circumflex nerve was identified exiting the fascia just anterior to the ASIS and this bifurcated and we protected those 2 branches throughout the procedure. It traveled a 45 degree angle relative to straight distal toe across over to the posterior skin flap. Fascia was incised over the tensor fascia zee and elevated off the anterior 50% of the TFL muscle interval between TFL and rectus femoris developed. Crossing vessels of the ascending lateral femoral circumflex branches were isolated ligated with suture and divided. Retractor was placed anterior to the capsule the hip abducted internally rotated the gluteus minimus elevated off the lateral capsule. Inverted T capsulotomy was performed. Femoral neck osteotomy was made according to preoperative templating. Acetabulum was exposed labrum excised. The fovea was completely overgrown with osteophyte. Leg was externally rotated extended and the interval between conjoined tendon and piriformis incised which allowed the piriformis to flipped posteriorly. With the leg back horizontal position external rotation and traction the acetabulum was prepared. We medialized with a 50 Reamer and reamed up to 57 mm medialized into the medial wall and a light reaming with the 58 Reamer to ream the periphery and the 58 trial was snug. The 58 pinnacle cup was impacted at 40? of abduction and anteversion such that the anterior shell was couple of mm under the anterior rim of the acetabulum and was about 3 or 4 mm proud of the posterior rim. Excellent Press-Fit was achieved. Single screw was placed in the ilium for additional fixation and the 36 inner diameter acetabular liner placed without difficulty. The leg was externally rotated extended and broaching was commenced. The size 9 broach still had wiggle with torsional stress and the 10 was quite solid. We trialed and I felt the high offset neck with the 1.5 head gave anglican of equal leg length and offset and appropriate soft tissue tension. We calcar planed and impacted the size 10 Actis high offset stem which achieved a solid fit and seated fully. We trialed 1 more time with a 1.5 head which was stable but had adequate soft tissue tension and the 5 head was simply too tight. The 1.5 ceramic head was impacted on the clean and dried trunnion after thorough irrigation again with Ancef solution the hip reduced stability reconfirmed. Local anesthetic cocktail was injected in the soft tissues. The superior capsular flaps were reapproximated with 2. Vicryl. The tensor fascia zee fascia was reapproximated with 1. Vicryl taking care to protect the bifurcating nerve branch of lateral femoral cutaneous nerve drain was placed deep in the sub Q fat layer and skin closed with 2 subcutaneous Vicryl and glue EBL was 500 cc. He received 125 back as Cell Saver. At time wound closure 2 additional g of Ancef and 1 g of tranexamic acid were administered. There were no known complications he was transferred postop recovery room in good condition. Estimated Blood Loss 500 Condit
--- NOTE | 2023-02-08 17:18 | PM.OP ---
Procedure Note - Brief Procedure Note - Brief Date of procedure: 02/08/23 O A Rt Hip Procedure performed: Right anterior total hip arthroplasty Surgeon: JORGE Pepe Description of procedure: 62-year-old male who underwent right anterior total hip arthroplasty on 02/08. Over the mild procedure including positioning positioned on the OR table. First assisting to time surgery. Total time spent was 3 hours
[2023-02-08] MEDS: fentaNYL CITRATE INJ (*CRX) 100 MCG/2 ML VIAL 25 MCG IV PUSH ×6 (17:41→18:33)
--- NOTE | 2023-02-08 17:53 | SUR.PHASEI ---
1752: Simple mask removed.
[2023-02-08] MEDS: SODIUM CHLORIDE 0.9% IV 1,000 ML 125 ML IV CONT (20:12)
[2023-02-08] MEDS: oxyCODONE HCL (*CRX) 5 MG TAB IR PO ×2 (20:12→23:02)
[2023-02-08] MEDS: ceFAZolin 2 GM/D5W 50 ML 2 GM/50 ML BAG IVPB (20:16)
[2023-02-08] MEDS: GABAPENTIN 300 MG CAPSULE 600 MG PO (22:03)
[2023-02-08] MEDS: ONDANSETRON INJ 4 MG/2 ML VIAL IV PUSH (23:21)
[2023-02-09] MEDS: ACETAMINOPHEN 500 MG TABLET 1000 MG PO ×3 (02:14→12:08)
[2023-02-09] MEDS: ceFAZolin 2 GM/D5W 50 ML 2 GM/50 ML BAG IVPB ×2 (04:10→10:24)
[2023-02-09] MEDS: oxyCODONE HCL (*CRX) 5 MG TAB IR PO ×3 (04:10→11:18)
[2023-02-09 04:19] VITALS: BP 132/73; PULSE 81; RESP 16; TEMP 35.7; O2SAT 99
--- NOTE | 2023-02-09 07:02 | PM.PNORT ---
Subjective Subjective Date/Time Seen: 02/09/23 07:02 Postop day 1 patient is alert. He is afebrile vital signs are stable. Morning labs not been completed yet. His drain is still in this will come out this morning. He was up last night to the restroom. Pain overall is well controlled. He is neurovascularly intact. Dressing is dry. Minimal swelling in the thigh. Overall patient is comfortable and doing well. He will work with physical therapy 2 times today and once his IV antibiotics have been completed to be discharged home this afternoon. Objective Data Vital Signs Vital Signs: Vital Signs - 24 hr 02/08/23 11:00 02/08/23 17:16 02/08/23 17:30 Temperature 36.5 C 36.7 C Pulse Rate 64 86 82 Respiratory Rate 16 15 12 Blood Pressure 133/79 126/83 134/57 L Pulse Oximetry 99 98 100 Oxygen Delivery Room Air Simple Face Mask Simple Face Mask Oxygen Flow Rate 6 6 02/08/23 17:45 02/08/23 18:00 02/08/23 18:15 Temperature Pulse Rate 83 79 74 Respiratory Rate 12 18 12 Blood Pressure 145/80 H 126/63 132/65 Pulse Oximetry 100 92 93 Oxygen Delivery Simple Face Mask Room Air Room Air Oxygen Flow Rate 8 02/08/23 18:29 02/08/23 18:55 02/08/23 19:10 Temperature 35.9 C L 35.8 C L Pulse Rate 82 82 70 Respiratory Rate 15 16 20 Blood Pressure 121/57 L 163/87 H 158/84 H Pulse Oximetry 97 95 99 Oxygen Delivery Room Air Oxygen Flow Rate 02/08/23 20:19 02/09/23 04:19 Temperature 35.7 C L 35.7 C L Pulse Rate 73 81 Respiratory Rate 16 16 Blood Pressure 164/84 H 132/73 Pulse Oximetry 98 99 Oxygen Delivery Oxygen Flow Rate Intake/Output Intake/Output: Intake & Output 02/06/23 02/07/23 02/08/23 02/09/23 23:59 23:59 23:59 23:59 Intake Total 150 600 Output Total 450 Balance 150 150 Meds/Results Medications: Active Medications Generic Name Dose Route Start Last Admin Trade Name Freq PRN Reason Stop Dose Admin Acetaminophen 1,000 mg 02/08/23 19:00 02/09/23 06:13 Acetaminophen 500 Mg Tablet PO 1,000 mg Q6H ZAK Administration Apixaban 2.5 mg 02/09/23 09:00 Apixaban 2.5 Mg Tablet PO Q12HR [facility] Celecoxib 200 mg 02/09/23 08:00 Celecoxib 200 Mg Capsule PO DAILY@0800 [facility]1983 Cephalexin HCl 500 mg 02/09/23 17:00 Cephalexin 500 Mg Capsule PO Q6HR [facility]1983 Cyanocobalamin 500 mcg 02/09/23 09:00 Cyanocobalamin 500 Mcg Tablet BY MOUTH DAILY [facility]1983 Cyanocobalamin 2,000 mcg 02/09/23 09:00 Cyanocobalamin 1,000 Mcg Tablet BY MOUTH DAILY [facility] Gabapentin 600 mg 02/08/23 21:00 02/08/23 22:03 Gabapentin 300 Mg Capsule PO 600 mg HS ZAK Administration Sodium Chloride 1,000 mls @ 125 mls/hr 02/08/23 18:34 02/08/23 20:12 Normal Saline Iv IV CONT 125 mls/hr .Q8H ZAK Administration Cefazolin Sodium 2 gm in 50 mls @ 100 mls/hr 02/08/23 19:00 02/09/23 04:10 Ancef 2 Gm/D5w 50 Ml IVPB 02/09/23 11:29 100 mls/hr Q8H ZAK Administration Vancomycin HCl 1,250 mg in 250 mls @ 166.667 mls/hr 02/08/23 23:00 02/08/23 22:59 Vancomycin 1,250 Mg/D5w 250 Ml IVPB 02/09/23 12:29 166.67 mls/hr Q12H ZAK Administration Losartan Potassium 50 mg 02/09/23 09:00 Losartan Potassium 50 Mg Tablet PO QAM [facility] Morphine Sulfate 2 mg 02/08/23 18:34 Morphine Sulfate (*Crx) 2 Mg/Ml Inj IV PUSH Q1H PRN Pain Rated 7-10 Multivitamins Therapeutic 1 tablet 02/09/23 09:00 Multivitamins Therapeutic Tab (*Bkc) PO DAILY [facility] Naloxone HCl 0.1 mg 02/08/23 18:34 Naloxone Hcl 0.4 Mg/Ml Vial IV PUSH Q2M PRN Opiate Reversal Ondansetron HCl 4 mg 02/08/23 21:13 02/08/23 23:21 Ondansetron Inj 4 Mg/2 Ml Vial IV PUSH 4 mg Q6H PRN Administration Nausea And Vomiting Oxycodone HCl 5 mg 02/08/23 19:00 02/09/23 04:10 Oxycodone Hcl (*Crx) 5 Mg Tab Ir PO 5 mg Q4H ZAK Administration Oxycodone HCl 5 mg 02/08/23 18:34 Oxycodone Hcl (*Crx) 5 Mg Tab Ir PO Q4H PRN Pa
--- NOTE | 2023-02-09 07:06 | PM.DS ---
DS: Admitting Diagnosis Discharge Date 02/09 Admitting Diagnosis Right hip DJD DS: Discharge Diagnosis Discharge Diagnosis (1) Hip arthritis: Code(s): M16.10 - Unilateral primary osteoarthritis, unspecified hip Status: Acute DS: Summary Hospital Course Hospital Course: 62-year-old male who underwent right anterior total hip arthroplasty on 02/08. Underwent the procedure without complications. Postoperatively he has been afebrile vital signs stable. Neurovascular is intact. His dressing is dry. He was up to the restroom the day of surgery. His pain is well controlled. He is on scheduled Tylenol and oxycodone 5 mg. He is on Eliquis for DVT prophylaxis. He is also on Celebrex 200 mg for the 1st 10 days for heterotopic bone formation prophylaxis. Patient is weight-bearing as tolerated. To be discharged home on 02/09. He also go home on Senokot and MiraLax for constipation. He will also go home on a 2 week course of Keflex due to his nasal swab growing BEBA. Patient was advised to keep leg elevated home to prevent swelling. Patient was advised any questions or concerns he is to call the office otherwise we will see him at his appointed dates. Time dictation morning labs on postop day 1 were not completed. Time Spent with Patient Time attestation: Total time spent providing and/or coordinating discharge services: Discharge Plan Discharge Patient Disposition: Home, Self-Care Discharge Instructions: TERRELL DALLAS M.D [facility] [address] [place] [id number] POST-OPERATIVE DISCHARGE INSTRUCTIONS ANTERIOR TOTAL HIP ARTHROPLASTY 1. Move toes/feet up and down every hour while awake. 2. Be up walking every hour while awake. 3. Use cane in hand opposite of side of hip surgery or walker as comfort allows. Avoid sitting in a chair unless eating, receiving visitors or using the toilet. 4. When resting, lie on back with leg elevated above heart to minimize swelling. Significant swelling could indicate a blood clot and if this occurs, call the office (or go to the ER) to have a venous ultrasound performed. 5. Wound Care: Keep dry sponge on wound for 2 weeks. Use minimal tape. . 6. May shower with dressing off. Stand Alone Forms: General Discharge Instructions Follow-up/Referrals: Terrell Dallas MD [Physician] - Keep Reg. Scheduled Appt. Discharge Medications: New acetaminophen 500 mg Tablet 1,000 mg PO Q6H Qty: 90 0RF Eliquis 2.5 mg Tablet 2.5 mg PO Q12HR Qty: 70 0RF celecoxib [Celebrex] 200 mg Capsule 200 mg PO DAILY@0800 Qty: 10 0RF polyethylene glycol 3350 [Miralax] 17 gram Powder In Packet 17 g PO QAM Qty: 30 0RF sennosides-docusate sodium [Senokot-S] 8.6-50 mg Tablet 2 tab PO BID Qty: 60 0RF cephalexin 500 mg Capsule 500 mg PO Q6HR Qty: 56 0RF oxycodone 5 mg Tablet 5 mg PO Q4H Qty: 40 0RF Continued gabapentin 300 mg capsule 600 mg PO HS losartan 50 mg tablet 50 mg PO QAM multivitamin [Multiple Vitamins] Tablet 1 tablet PO DAILY cyanocobalamin (vitamin B-12) 2,500 mcg tablet, sublingual 2,500 mcg SUBLINGUAL DAILY cetirizine [Zyrtec] 10 mg tablet 10 mg PO DAILY Discontinued hydrocodone-acetaminophen 10-325 mg Tablet 1 tablet PO BID PRN (Reason: Pain) acetaminophen [Tylenol Extended Release] 650 mg Tablet Extended Release 650 mg PO HS diclofenac sodium 75 mg tablet,delayed release (DR/EC) 75 mg PO BID
[2023-02-09 07:30] LABS: Basophils Percent Auto 0.3 % (0.2-1.2); Eosinophils Percent Auto 0.3 % (0-4.4); Hematocrit 37.2 % (42.0-52.0); Hemoglobin 12.4 g/dL (14.0-18.0); Immature Granulocyte Absolute 0.03 K/mm3 (0.00-0.031); Immature Granulocyte Percent A 0.4 % (0-0.5); Lymphocytes Absolute Auto 1.12 K/mm3 (0.9-3.2); Mean Corpuscular HGB Conc 33.3 g/dl (32-36); Mean Corpuscular Volume 89.9 fl (80-100); Mean Platelet Volume 10.6 fl (7.4-10.4); Monocytes Absolute Auto 0.7 K/mm3 (0.1-0.6); Neutrophils Absolute Auto 5.6 K/mm3 (1.3-6.7); Platelet Count Result 227 k/mm3 (150-375); Red Blood Count 4.14 M/mm3 (4.6-6.20); Red Cell Distribution Width 12.7 % (11.5-14.5); White Blood Count 7.5 K/mm3 (4.5-10.0)
[2023-02-09 07:45] LABS: Anion Gap 7 mmol/L (8-16); Blood Urea Nitrogen 15 mg/dL (9-20); Calcium 8.5 mg/dL (8.4-10.2); Carbon Dioxide 26 mmol/L (22-30); Chloride 103 mmol/L (98-107); Estimated CRCL calculation 112 ml/min; Estimated Glomerular Filt Rate > 60; Glucose 106 mg/dL (65-110); Potassium 3.5 mmol/L (3.4-5.0); Sodium 136 mmol/L (137-145)
[2023-02-09] MEDS: CYANOCOBALAMIN 1,000 MCG TABLET 2000 MCG BY MOUTH (08:15)
[2023-02-09] MEDS: polyethylene glycoL 3350 17 GM POWD.PACK PO (08:15)
[2023-02-09] MEDS: CELECOXIB 200 MG CAPSULE PO (08:15)
[2023-02-09] MEDS: MULTIVITAMINS THERAPEUTIC TAB (*BKC) 1 TABLET PO (08:16)
[2023-02-09] MEDS: LOSARTAN POTASSIUM 50 MG TABLET PO (08:16)
[2023-02-09] MEDS: APIXABAN 2.5 MG TABLET PO (08:16)
[2023-02-09] MEDS: SENNA/DOCUSATE SODIUM TABLET 2 TAB PO (08:16)
[2023-02-09] MEDS: CYANOCOBALAMIN 500 MCG TABLET BY MOUTH (08:16)
[2023-02-09 08:19] VITALS: BP 137/67; PULSE 74; RESP 16; TEMP 36; O2SAT 99
--- NOTE | 2023-02-09 09:31 | P.PNAN_ITS ---
Anes - Prog Note Post-Op Date/Time: 02/09/23 09:31 Cardiovascular status: normal Respiratory status: normal Airway patency: baseline Mental status: baseline Post-Op hydration status: normal Vital Signs: Last Vital Signs Temp 36.0 C L 02/09/23 08:19 Pulse 74 02/09/23 08:19 Resp 16 02/09/23 08:19 BP 137/67 02/09/23 08:19 Pulse Ox 99 02/09/23 08:19 O2 Del Method Room Air 02/08/23 18:29 O2 Flow Rate 8 02/08/23 17:45 Pain Score (VAS): 2 I/O: Intake & Output 02/08/23 02/09/23 02/09/23 23:59 07:59 15:59 Intake Total 50 600 Output Total 450 Balance 50 150 Laboratory Tests 02/09/23 06:40 02/09/23 06:40 02/09/23 02/09/23 06:40 06:40 WBC 7.5 RBC 4.14 L Hgb 12.4 L Hct 37.2 L MCV 89.9 MCH 30.0 MCHC 33.3 RDW 12.7 Plt Count 227 MPV 10.6 H Immature Gran % (Auto) 0.4 Neut % (Auto) 75.0 H Lymph % (Auto) 15.0 L Dewitt % (Auto) 9.0 H Eos % (Auto) 0.3 Baso % (Auto) 0.3 Lymph # (Auto) 1.12 Dewitt # (Auto) 0.7 H Eos # (Auto) 0.0 Baso # (Auto) 0.0 Abs Immat Gran (auto) 0.03 Absolute Neuts (auto) 5.6 Absolute Nucleated RBC 0.0 Nucleated RBC % 0.0 Sodium 136 L Potassium 3.5 Chloride 103 Carbon Dioxide 26 Anion Gap 7 L BUN 15 Creatinine 0.80 Estim Creat Clear Calc 112 Estimated GFR > 60 Glucose 106 Calcium 8.5 Post-procedural complaints: none Patient Feedback: Patient satisfied with anesthetic care.
[2023-02-09 11:45] VITALS: BP 118/58; PULSE 69; RESP 16; TEMP 36.3; O2SAT 99
== END 2023-02-09 14:15 | disposition home or self-care (01) ==
LOC: ANHSURGERY 12:42 → ANH3MEDSUR 18:39
PROVIDERS: PCP Internal Medicine; Visit Provider Orthopaedic Surgery
PROC: (CPT 27130; principal; 2023-02-08 12:00)
DX: M16.11 Unilateral primary osteoarthritis, right hip (principal); I10 Essential (primary) hypertension; G47.33 Obstructive sleep apnea (adult) (pediatric); E66.9 Obesity, unspecified; Z68.37 Body mass index [BMI] 37.0-37.9, adult
CPT/HCPCS: 27130; 36415; 73502; 80048; 80053; 80061; 80307; 82040; 82607; 83036; 85025; 85652; 86140; 86850; 86900; 86901; 87081; 87147; 87181; 87186; 93005; 97110; 97116; 97161; 97165; 97530; 97535; 99199; A9270; C1776; J0171; J0690; J1100; J1170; J1885; J2250; J2270; J2405; J2704; J2795; J3010; J3370; J7030; J7120